=== PATIENT | male | born 1950 | race Caucasian/White ===

== ENCOUNTER 2018-03-18 09:05 | Outpatient (CLI) | payer MEDICARE, OTHER | END 2018-03-18 09:06 | disposition home or self-care (01) | LOC: LAB.F 09:05 | PROVIDERS: ATTEND Internal Medicine | DX: I35.9 Nonrheumatic aortic valve disorder, unspecified (principal); Z79.01 Long term (current) use of anticoagulants | CPT/HCPCS: 85610 ==

== ENCOUNTER 2018-04-29 09:15 | Outpatient (CLI) | payer MEDICARE, OTHER | END 2018-04-29 09:16 | disposition home or self-care (01) | LOC: LAB.F 09:15 | PROVIDERS: ATTEND Internal Medicine | DX: I35.9 Nonrheumatic aortic valve disorder, unspecified (principal); Z79.01 Long term (current) use of anticoagulants | CPT/HCPCS: 85610 ==

== ENCOUNTER 2018-06-04 09:37 | Outpatient (CLI) | payer MEDICARE, OTHER | END 2018-06-04 09:38 | disposition home or self-care (01) | LOC: LAB.F 09:37 | PROVIDERS: ATTEND Internal Medicine | DX: I35.9 Nonrheumatic aortic valve disorder, unspecified (principal) | CPT/HCPCS: 85610 ==

== ENCOUNTER 2018-06-25 09:01 | Outpatient (CLI) | payer MEDICARE, OTHER | END 2018-06-25 09:02 | disposition home or self-care (01) | LOC: LAB.F 09:01 | PROVIDERS: ATTEND Internal Medicine | DX: I35.9 Nonrheumatic aortic valve disorder, unspecified (principal) | CPT/HCPCS: 85610 ==

== ENCOUNTER 2018-07-05 10:23 | Outpatient (CLI) | payer MEDICARE, OTHER | END 2018-07-05 10:24 | disposition home or self-care (01) | LOC: DI 10:23 | PROVIDERS: ATTEND Internal Medicine Cardiovascular Disease | DX: I48.3 Typical atrial flutter (principal); I35.9 Nonrheumatic aortic valve disorder, unspecified | CPT/HCPCS: 93306 ==

== ENCOUNTER 2018-07-16 10:50 | Outpatient (CLI) | payer MEDICARE, OTHER | END 2018-07-16 10:51 | disposition home or self-care (01) | LOC: LAB.F 10:50 | PROVIDERS: ATTEND Internal Medicine | DX: I35.9 Nonrheumatic aortic valve disorder, unspecified (principal) | CPT/HCPCS: 85610 ==

== ENCOUNTER 2018-08-12 08:33 | Outpatient (CLI) | payer MEDICARE, OTHER | END 2018-08-12 08:34 | disposition home or self-care (01) | LOC: LAB.F 08:33 | PROVIDERS: ATTEND Internal Medicine | DX: I35.9 Nonrheumatic aortic valve disorder, unspecified (principal) | CPT/HCPCS: 85610 ==

== ENCOUNTER 2018-09-23 08:35 | Outpatient (CLI) | payer MEDICARE, OTHER | END 2018-09-23 08:36 | disposition home or self-care (01) | LOC: LAB.F 08:35 | PROVIDERS: ATTEND Internal Medicine | DX: I35.9 Nonrheumatic aortic valve disorder, unspecified (principal) | CPT/HCPCS: 85610 ==

== ENCOUNTER 2018-11-04 08:12 | Outpatient (CLI) | payer MEDICARE, OTHER | END 2018-11-04 08:13 | disposition home or self-care (01) | LOC: LAB.F 08:12 | PROVIDERS: ATTEND Internal Medicine | DX: I35.9 Nonrheumatic aortic valve disorder, unspecified (principal) | CPT/HCPCS: 85610 ==

== ENCOUNTER 2018-12-16 08:34 | Outpatient (CLI) | payer MEDICARE, OTHER | END 2018-12-16 08:35 | disposition home or self-care (01) | LOC: LAB.F 08:34 | PROVIDERS: ATTEND Internal Medicine | DX: I35.9 Nonrheumatic aortic valve disorder, unspecified (principal) | CPT/HCPCS: 85610 ==

== ENCOUNTER 2019-01-27 08:23 | Outpatient (CLI) | payer MEDICARE, OTHER | END 2019-01-27 08:24 | disposition home or self-care (01) | LOC: LAB.F 08:23 | PROVIDERS: ATTEND Internal Medicine | DX: I35.9 Nonrheumatic aortic valve disorder, unspecified (principal) | CPT/HCPCS: 85610 ==

== ENCOUNTER 2019-03-10 08:00 | Outpatient (CLI) | payer MEDICARE, OTHER | END 2019-03-10 08:01 | disposition home or self-care (01) | LOC: LAB.F 08:00 | PROVIDERS: ATTEND Internal Medicine | DX: I35.9 Nonrheumatic aortic valve disorder, unspecified (principal) | CPT/HCPCS: 85610 ==

== ENCOUNTER 2019-04-21 07:44 | Outpatient (CLI) | payer MEDICARE, OTHER | END 2019-04-21 07:45 | disposition home or self-care (01) | LOC: LAB.F 07:44 | PROVIDERS: ATTEND Internal Medicine | DX: I35.9 Nonrheumatic aortic valve disorder, unspecified (principal) | CPT/HCPCS: 85610 ==

== ENCOUNTER 2019-06-02 08:27 | Outpatient (CLI) | payer MEDICARE, OTHER | END 2019-06-02 08:28 | disposition home or self-care (01) | LOC: LAB.S 08:27 | PROVIDERS: ATTEND Internal Medicine | DX: I35.9 Nonrheumatic aortic valve disorder, unspecified (principal) | CPT/HCPCS: 85610 ==

== ENCOUNTER 2019-07-14 08:50 | Outpatient (CLI) | payer MEDICARE, OTHER | END 2019-07-14 08:51 | disposition home or self-care (01) | LOC: LAB.S 08:50 | PROVIDERS: ATTEND Internal Medicine | DX: I35.9 Nonrheumatic aortic valve disorder, unspecified (principal) | CPT/HCPCS: 85610 ==

== ENCOUNTER 2019-08-25 07:53 | Outpatient (CLI) | payer MEDICARE, OTHER | END 2019-08-25 07:54 | disposition home or self-care (01) | LOC: LAB.S 07:53 | PROVIDERS: ATTEND Internal Medicine | DX: I35.9 Nonrheumatic aortic valve disorder, unspecified (principal) | CPT/HCPCS: 85610 ==

== ENCOUNTER 2019-10-06 08:34 | Outpatient (CLI) | payer MEDICARE, OTHER | END 2019-10-06 08:35 | disposition home or self-care (01) | LOC: LAB.S 08:34 | PROVIDERS: ATTEND Internal Medicine | DX: I35.9 Nonrheumatic aortic valve disorder, unspecified (principal) | CPT/HCPCS: 85610 ==

== ENCOUNTER 2019-11-16 08:44 | Outpatient (CLI) | payer MEDICARE, OTHER | END 2019-11-16 08:45 | disposition home or self-care (01) | LOC: LAB.S 08:44 | PROVIDERS: ATTEND Internal Medicine | DX: I35.9 Nonrheumatic aortic valve disorder, unspecified (principal) | CPT/HCPCS: 85610 ==

== ENCOUNTER 2019-12-29 08:38 | Outpatient (CLI) | payer MEDICARE, OTHER | END 2019-12-29 08:39 | disposition home or self-care (01) | LOC: LAB.S 08:38 | PROVIDERS: ATTEND Internal Medicine | DX: I35.9 Nonrheumatic aortic valve disorder, unspecified (principal) | CPT/HCPCS: 85610 ==

== ENCOUNTER 2019-12-31 08:08 | Outpatient (CLI) | payer MEDICARE, OTHER | END 2019-12-31 08:09 | disposition home or self-care (01) | LOC: LAB.S 08:08 | PROVIDERS: ATTEND Internal Medicine | DX: I35.9 Nonrheumatic aortic valve disorder, unspecified (principal) | CPT/HCPCS: 85610 ==

== ENCOUNTER 2020-01-12 08:37 | Outpatient (CLI) | payer MEDICARE, OTHER | END 2020-01-12 08:38 | disposition home or self-care (01) | LOC: LAB.S 08:37 | PROVIDERS: ATTEND Internal Medicine | DX: I35.9 Nonrheumatic aortic valve disorder, unspecified (principal) | CPT/HCPCS: 85610 ==

== ENCOUNTER 2020-01-26 09:36 | Outpatient (CLI) | payer MEDICARE, OTHER | END 2020-01-26 09:37 | disposition home or self-care (01) | LOC: LAB.S 09:36 | PROVIDERS: ATTEND Internal Medicine | DX: I35.9 Nonrheumatic aortic valve disorder, unspecified (principal) | CPT/HCPCS: 85610 ==

== ENCOUNTER 2020-02-09 09:11 | Outpatient (CLI) | payer MEDICARE, OTHER | END 2020-02-09 09:12 | disposition home or self-care (01) | LOC: LAB.S 09:11 | PROVIDERS: ATTEND Internal Medicine | DX: I35.9 Nonrheumatic aortic valve disorder, unspecified (principal) | CPT/HCPCS: 85610 ==

== ENCOUNTER 2020-07-27 09:10 | Outpatient (CLI) | payer MEDICARE, OTHER | END 2020-07-27 09:11 | disposition home or self-care (01) | LOC: LAB.S 09:10 | PROVIDERS: ATTEND Internal Medicine | DX: I35.9 Nonrheumatic aortic valve disorder, unspecified (principal) | CPT/HCPCS: 85610 ==

== ENCOUNTER 2020-09-07 09:22 | Outpatient (CLI) | payer MEDICARE, OTHER | END 2020-09-07 09:23 | disposition home or self-care (01) | LOC: LAB.S 09:22 | PROVIDERS: ATTEND Internal Medicine | DX: I35.9 Nonrheumatic aortic valve disorder, unspecified (principal) | CPT/HCPCS: 85610 ==

== ENCOUNTER 2020-10-19 09:04 | Outpatient (CLI) | payer MEDICARE, OTHER | END 2020-10-19 09:05 | disposition home or self-care (01) | LOC: LAB.S 09:04 | PROVIDERS: ATTEND Internal Medicine | DX: I35.9 Nonrheumatic aortic valve disorder, unspecified (principal) | CPT/HCPCS: 85610 ==

== ENCOUNTER 2020-12-07 09:15 | Outpatient (CLI) | payer MEDICARE, OTHER | END 2020-12-07 09:16 | disposition home or self-care (01) | LOC: LAB.S 09:15 | PROVIDERS: ATTEND Internal Medicine | DX: I35.9 Nonrheumatic aortic valve disorder, unspecified (principal) | CPT/HCPCS: 85610 ==

== ENCOUNTER 2021-01-18 09:13 | Outpatient (CLI) | payer MEDICARE, OTHER | END 2021-01-18 09:14 | disposition home or self-care (01) | LOC: LAB.S 09:13 | PROVIDERS: ATTEND Internal Medicine | DX: I35.9 Nonrheumatic aortic valve disorder, unspecified (principal); Z51.81 Encounter for therapeutic drug level monitoring; Z79.01 Long term (current) use of anticoagulants | CPT/HCPCS: 85610 ==

== ENCOUNTER 2021-04-06 10:46 | Outpatient (CLI) | payer MEDICARE, OTHER | END 2021-04-06 10:47 | disposition home or self-care (01) | LOC: LAB.S 10:46 | PROVIDERS: ATTEND Internal Medicine | DX: Z51.81 Encounter for therapeutic drug level monitoring (principal); Z79.01 Long term (current) use of anticoagulants; I35.9 Nonrheumatic aortic valve disorder, unspecified | CPT/HCPCS: 36416; 85610 ==

== ENCOUNTER 2021-05-18 09:45 | Outpatient (CLI) | payer MEDICARE, OTHER | END 2021-05-18 09:46 | disposition home or self-care (01) | LOC: LAB.S 09:45 | PROVIDERS: ATTEND Internal Medicine | DX: Z51.81 Encounter for therapeutic drug level monitoring (principal); Z79.01 Long term (current) use of anticoagulants; I35.9 Nonrheumatic aortic valve disorder, unspecified | CPT/HCPCS: 36416; 85610 ==

== ENCOUNTER 2021-06-13 09:04 | Outpatient (CLI) | payer MEDICARE, OTHER | END 2021-06-13 09:05 | disposition home or self-care (01) | LOC: LAB.S 09:04 | PROVIDERS: ATTEND Internal Medicine | DX: Z51.81 Encounter for therapeutic drug level monitoring (principal); Z79.01 Long term (current) use of anticoagulants; I35.9 Nonrheumatic aortic valve disorder, unspecified | CPT/HCPCS: 36416; 85610 ==

== ENCOUNTER 2021-06-20 09:08 | Outpatient (CLI) | payer MEDICARE, OTHER | END 2021-06-20 09:09 | disposition home or self-care (01) | LOC: LAB.S 09:08 | PROVIDERS: ATTEND Internal Medicine | DX: Z51.81 Encounter for therapeutic drug level monitoring (principal); Z79.01 Long term (current) use of anticoagulants; I35.9 Nonrheumatic aortic valve disorder, unspecified | CPT/HCPCS: 36416; 85610 ==

== ENCOUNTER 2021-07-04 09:02 | Outpatient (CLI) | payer MEDICARE, OTHER | END 2021-07-04 09:03 | disposition home or self-care (01) | LOC: LAB.S 09:02 | PROVIDERS: ATTEND Internal Medicine | DX: Z51.81 Encounter for therapeutic drug level monitoring (principal); Z79.01 Long term (current) use of anticoagulants; I35.9 Nonrheumatic aortic valve disorder, unspecified | CPT/HCPCS: 36416; 85610 ==

== ENCOUNTER 2021-08-01 09:14 | Outpatient (CLI) | payer MEDICARE, OTHER | END 2021-08-01 09:15 | disposition home or self-care (01) | LOC: LAB.S 09:14 | PROVIDERS: ATTEND Internal Medicine | DX: Z51.81 Encounter for therapeutic drug level monitoring (principal); Z79.01 Long term (current) use of anticoagulants; I35.9 Nonrheumatic aortic valve disorder, unspecified | CPT/HCPCS: 36416; 85610 ==

== ENCOUNTER 2021-08-29 09:58 | Outpatient (CLI) | payer MEDICARE, OTHER | END 2021-08-29 09:59 | disposition home or self-care (01) | LOC: LAB.S 09:58 | PROVIDERS: ATTEND Internal Medicine | DX: I35.9 Nonrheumatic aortic valve disorder, unspecified (principal); Z51.81 Encounter for therapeutic drug level monitoring; Z79.01 Long term (current) use of anticoagulants | CPT/HCPCS: 36416; 85610 ==

== ENCOUNTER 2021-09-26 08:26 | Outpatient (CLI) | payer MEDICARE, OTHER | END 2021-09-26 08:27 | disposition home or self-care (01) | LOC: LAB.S 08:26 | PROVIDERS: ATTEND Internal Medicine | DX: Z51.81 Encounter for therapeutic drug level monitoring (principal); Z79.01 Long term (current) use of anticoagulants; I35.9 Nonrheumatic aortic valve disorder, unspecified | CPT/HCPCS: 36416; 85610 ==

== ENCOUNTER 2021-11-07 08:58 | Outpatient (CLI) | payer MEDICARE, OTHER | END 2021-11-07 08:59 | disposition home or self-care (01) | LOC: LAB.S 08:58 | PROVIDERS: ATTEND Internal Medicine | DX: Z51.81 Encounter for therapeutic drug level monitoring (principal); Z79.01 Long term (current) use of anticoagulants; I35.9 Nonrheumatic aortic valve disorder, unspecified | CPT/HCPCS: 36416; 85610 ==

== ENCOUNTER 2021-12-19 09:00 | Outpatient (CLI) | payer MEDICARE, OTHER | END 2021-12-19 09:01 | disposition home or self-care (01) | LOC: LAB.S 09:00 | PROVIDERS: ATTEND Internal Medicine | DX: Z51.81 Encounter for therapeutic drug level monitoring (principal); Z79.01 Long term (current) use of anticoagulants; I35.9 Nonrheumatic aortic valve disorder, unspecified | CPT/HCPCS: 36416; 85610 ==

== ENCOUNTER 2022-01-30 09:17 | Outpatient (CLI) | payer MEDICARE, OTHER | END 2022-01-30 09:18 | disposition home or self-care (01) | LOC: LAB.S 09:17 | PROVIDERS: ATTEND Internal Medicine | DX: Z51.81 Encounter for therapeutic drug level monitoring (principal); Z79.01 Long term (current) use of anticoagulants; I35.9 Nonrheumatic aortic valve disorder, unspecified | CPT/HCPCS: 36416; 85610 ==

== ENCOUNTER 2022-03-14 09:24 | Outpatient (CLI) | payer MEDICARE, OTHER | END 2022-03-14 09:25 | disposition home or self-care (01) | LOC: LAB.S 09:24 | PROVIDERS: ATTEND Internal Medicine | DX: Z51.81 Encounter for therapeutic drug level monitoring (principal); I35.9 Nonrheumatic aortic valve disorder, unspecified; Z79.01 Long term (current) use of anticoagulants | CPT/HCPCS: 36416; 85610 ==

== ENCOUNTER 2022-04-30 07:55 | Outpatient (CLI) | payer MEDICARE, OTHER | END 2022-04-30 07:56 | disposition home or self-care (01) | LOC: LAB.S 07:55 | PROVIDERS: ATTEND Internal Medicine | DX: Z51.81 Encounter for therapeutic drug level monitoring (principal); Z79.01 Long term (current) use of anticoagulants; I35.9 Nonrheumatic aortic valve disorder, unspecified | CPT/HCPCS: 36416; 85610 ==

== ENCOUNTER 2022-06-06 09:21 | Outpatient (CLI) | payer MEDICARE, OTHER | END 2022-06-06 09:22 | disposition home or self-care (01) | LOC: LAB.S 09:21 | PROVIDERS: ATTEND Internal Medicine | DX: Z51.81 Encounter for therapeutic drug level monitoring (principal); Z79.01 Long term (current) use of anticoagulants; I35.9 Nonrheumatic aortic valve disorder, unspecified | CPT/HCPCS: 36416; 85610 ==

== ENCOUNTER 2022-07-18 09:18 | Outpatient (CLI) | payer MEDICARE, OTHER | END 2022-07-18 09:19 | disposition home or self-care (01) | LOC: LAB.S 09:18 | PROVIDERS: ATTEND Internal Medicine | DX: I35.9 Nonrheumatic aortic valve disorder, unspecified (principal); Z51.81 Encounter for therapeutic drug level monitoring; Z79.01 Long term (current) use of anticoagulants | CPT/HCPCS: 36416; 85610 ==

== ENCOUNTER 2022-08-08 09:50 | Outpatient (CLI) | payer MEDICARE, OTHER | END 2022-08-08 09:51 | disposition home or self-care (01) | LOC: LAB.S 09:50 | PROVIDERS: ATTEND Internal Medicine | DX: Z51.81 Encounter for therapeutic drug level monitoring (principal); I35.9 Nonrheumatic aortic valve disorder, unspecified; Z79.01 Long term (current) use of anticoagulants | CPT/HCPCS: 36416; 85610 ==

== ENCOUNTER 2022-09-05 08:33 | Outpatient (CLI) | payer MEDICARE, OTHER | END 2022-09-05 08:34 | disposition home or self-care (01) | LOC: LAB.S 08:33 | PROVIDERS: ATTEND Internal Medicine | DX: Z51.81 Encounter for therapeutic drug level monitoring (principal); Z79.01 Long term (current) use of anticoagulants; I35.9 Nonrheumatic aortic valve disorder, unspecified | CPT/HCPCS: 36416; 85610 ==

== ENCOUNTER 2022-09-26 08:43 | Outpatient (CLI) | payer MEDICARE, OTHER | END 2022-09-26 08:44 | disposition home or self-care (01) | LOC: LAB.S 08:43 | PROVIDERS: ATTEND Internal Medicine | DX: Z51.81 Encounter for therapeutic drug level monitoring (principal); Z79.01 Long term (current) use of anticoagulants; I35.9 Nonrheumatic aortic valve disorder, unspecified | CPT/HCPCS: 36416; 85610 ==

== ENCOUNTER 2022-10-24 08:52 | Outpatient (CLI) | payer MEDICARE, OTHER | END 2022-10-24 08:53 | disposition home or self-care (01) | LOC: LAB.S 08:52 | PROVIDERS: ATTEND Internal Medicine | DX: Z51.81 Encounter for therapeutic drug level monitoring (principal); Z79.01 Long term (current) use of anticoagulants; I35.9 Nonrheumatic aortic valve disorder, unspecified | CPT/HCPCS: 36416; 85610 ==

== ENCOUNTER 2022-12-05 09:34 | Outpatient (CLI) | payer MEDICARE, BC | END 2022-12-05 09:35 | disposition home or self-care (01) | LOC: LAB.S 09:34 | PROVIDERS: ATTEND Internal Medicine | DX: Z51.81 Encounter for therapeutic drug level monitoring (principal); Z79.01 Long term (current) use of anticoagulants; I35.9 Nonrheumatic aortic valve disorder, unspecified | CPT/HCPCS: 36416; 85610 ==

== ENCOUNTER 2022-12-26 08:47 | Outpatient (CLI) | payer MEDICARE, BC | END 2022-12-26 08:48 | disposition home or self-care (01) | LOC: LAB.S 08:47 | PROVIDERS: ATTEND Internal Medicine | DX: Z51.81 Encounter for therapeutic drug level monitoring (principal); I35.9 Nonrheumatic aortic valve disorder, unspecified; Z79.01 Long term (current) use of anticoagulants | CPT/HCPCS: 36416; 85610 ==

== ENCOUNTER 2023-02-06 09:38 | Outpatient (CLI) | payer MEDICARE, BC | END 2023-02-06 09:39 | disposition home or self-care (01) | LOC: LAB.S 09:38 | PROVIDERS: ATTEND Internal Medicine | DX: Z51.81 Encounter for therapeutic drug level monitoring (principal); Z79.01 Long term (current) use of anticoagulants; I35.9 Nonrheumatic aortic valve disorder, unspecified | CPT/HCPCS: 36416; 85610 ==

== ENCOUNTER 2023-03-20 08:46 | Outpatient (CLI) | payer MEDICARE, OTHER | END 2023-03-20 08:47 | disposition home or self-care (01) | LOC: LAB.S 08:46 | PROVIDERS: ATTEND Internal Medicine | DX: Z51.81 Encounter for therapeutic drug level monitoring (principal); Z79.01 Long term (current) use of anticoagulants; I35.9 Nonrheumatic aortic valve disorder, unspecified | CPT/HCPCS: 36416; 85610 ==

== ENCOUNTER 2023-05-01 08:19 | Outpatient (CLI) | payer MEDICARE, OTHER | END 2023-05-01 08:20 | disposition home or self-care (01) | LOC: LAB.S 08:19 | PROVIDERS: ATTEND Internal Medicine | DX: Z51.81 Encounter for therapeutic drug level monitoring (principal); Z79.01 Long term (current) use of anticoagulants; I35.9 Nonrheumatic aortic valve disorder, unspecified | CPT/HCPCS: 36416; 85610 ==

== ENCOUNTER 2023-06-12 08:30 | Outpatient (CLI) | payer MEDICARE, OTHER | END 2023-06-12 08:31 | disposition home or self-care (01) | LOC: LAB.S 08:30 | PROVIDERS: ATTEND Internal Medicine | DX: Z51.81 Encounter for therapeutic drug level monitoring (principal); Z79.01 Long term (current) use of anticoagulants; I35.9 Nonrheumatic aortic valve disorder, unspecified | CPT/HCPCS: 36416; 85610 ==

== ENCOUNTER 2023-07-10 08:11 | Outpatient (CLI) | payer MEDICARE, OTHER | END 2023-07-10 08:12 | disposition home or self-care (01) | LOC: LAB.S 08:11 | PROVIDERS: ATTEND Internal Medicine | DX: Z51.81 Encounter for therapeutic drug level monitoring (principal); Z79.01 Long term (current) use of anticoagulants; I35.9 Nonrheumatic aortic valve disorder, unspecified | CPT/HCPCS: 36416; 85610 ==

== ENCOUNTER 2023-10-02 09:07 | Outpatient (CLI) | payer MEDICARE, OTHER | END 2023-10-02 09:08 | disposition home or self-care (01) | LOC: DI 09:07 | PROVIDERS: ATTEND Internal Medicine Cardiovascular Disease | DX: Z95.2 Presence of prosthetic heart valve (principal); I77.819 Aortic ectasia, unspecified site; R00.1 Bradycardia, unspecified | CPT/HCPCS: 93306 ==

== ENCOUNTER 2023-10-31 08:41 | Outpatient (CLI) | payer MEDICARE, OTHER | END 2023-10-31 08:42 | disposition home or self-care (01) | LOC: LAB.S 08:41 | PROVIDERS: ATTEND Internal Medicine | DX: Z51.81 Encounter for therapeutic drug level monitoring (principal); Z79.01 Long term (current) use of anticoagulants; I35.9 Nonrheumatic aortic valve disorder, unspecified | CPT/HCPCS: 36416; 85610 ==

== ENCOUNTER 2023-11-14 09:14 | Outpatient (CLI) | payer MEDICARE, OTHER | END 2023-11-14 09:15 | disposition home or self-care (01) | LOC: LAB.S 09:14 | PROVIDERS: ATTEND Internal Medicine | DX: Z51.81 Encounter for therapeutic drug level monitoring (principal); Z79.01 Long term (current) use of anticoagulants; I35.9 Nonrheumatic aortic valve disorder, unspecified | CPT/HCPCS: 36416; 85610 ==

== ENCOUNTER 2023-12-11 08:47 | Outpatient (CLI) | payer MEDICARE, OTHER | END 2023-12-11 08:48 | disposition home or self-care (01) | LOC: LAB.S 08:47 | PROVIDERS: ATTEND Internal Medicine | DX: Z51.81 Encounter for therapeutic drug level monitoring (principal); Z79.01 Long term (current) use of anticoagulants; I35.9 Nonrheumatic aortic valve disorder, unspecified | CPT/HCPCS: 36416; 85610 ==

== ENCOUNTER 2024-01-02 08:32 | Outpatient (CLI) | payer MEDICARE, OTHER | END 2024-01-02 08:33 | disposition home or self-care (01) | LOC: LAB.S 08:32 | PROVIDERS: ATTEND Internal Medicine | DX: Z51.81 Encounter for therapeutic drug level monitoring (principal); Z79.01 Long term (current) use of anticoagulants; I35.9 Nonrheumatic aortic valve disorder, unspecified | CPT/HCPCS: 36416; 85610 ==

== ENCOUNTER 2024-01-22 08:21 | Outpatient (CLI) | payer MEDICARE, OTHER | END 2024-01-22 08:22 | disposition home or self-care (01) | LOC: LAB.S 08:21 | PROVIDERS: ATTEND Internal Medicine | DX: Z51.81 Encounter for therapeutic drug level monitoring (principal); Z79.01 Long term (current) use of anticoagulants; I35.9 Nonrheumatic aortic valve disorder, unspecified | CPT/HCPCS: 36416; 85610 ==

== ENCOUNTER 2024-02-27 08:33 | Outpatient (CLI) | payer MEDICARE, OTHER | END 2024-02-27 08:34 | disposition home or self-care (01) | LOC: LAB.S 08:33 | PROVIDERS: ATTEND Internal Medicine | DX: Z51.81 Encounter for therapeutic drug level monitoring (principal); Z79.01 Long term (current) use of anticoagulants; I35.9 Nonrheumatic aortic valve disorder, unspecified | CPT/HCPCS: 36416; 85610 ==

== ENCOUNTER 2024-03-30 08:25 | Outpatient (CLI) | payer MEDICARE, OTHER | END 2024-03-30 08:26 | disposition home or self-care (01) | LOC: LAB.S 08:25 | PROVIDERS: ATTEND Internal Medicine | DX: Z51.81 Encounter for therapeutic drug level monitoring (principal); Z79.01 Long term (current) use of anticoagulants; I35.9 Nonrheumatic aortic valve disorder, unspecified | CPT/HCPCS: 36416; 85610 ==

== ENCOUNTER 2024-04-20 09:34 | Outpatient (CLI) | payer MEDICARE, OTHER | END 2024-04-20 09:35 | disposition home or self-care (01) | LOC: LAB.S 09:34 | PROVIDERS: ATTEND Internal Medicine | DX: Z51.81 Encounter for therapeutic drug level monitoring (principal); Z79.01 Long term (current) use of anticoagulants; I35.9 Nonrheumatic aortic valve disorder, unspecified | CPT/HCPCS: 36416; 85610 ==

== ENCOUNTER 2024-05-11 08:04 | Outpatient (CLI) | payer MEDICARE, OTHER | END 2024-05-11 08:05 | disposition home or self-care (01) | LOC: LAB.S 08:04 | PROVIDERS: ATTEND Internal Medicine | DX: Z51.81 Encounter for therapeutic drug level monitoring (principal); Z79.01 Long term (current) use of anticoagulants; I35.9 Nonrheumatic aortic valve disorder, unspecified | CPT/HCPCS: 36416; 85610 ==

== ENCOUNTER 2024-06-17 08:40 | Outpatient (CLI) | payer MEDICARE, OTHER | END 2024-06-17 08:41 | disposition home or self-care (01) | LOC: LAB.S 08:40 | PROVIDERS: ATTEND Internal Medicine | DX: Z51.81 Encounter for therapeutic drug level monitoring (principal); Z79.01 Long term (current) use of anticoagulants; I35.9 Nonrheumatic aortic valve disorder, unspecified | CPT/HCPCS: 36416; 85610 ==

== ENCOUNTER 2024-07-08 08:52 | Outpatient (CLI) | payer MEDICARE, OTHER | END 2024-07-08 08:53 | disposition home or self-care (01) | LOC: LAB.S 08:52 | PROVIDERS: ATTEND Internal Medicine | DX: Z51.81 Encounter for therapeutic drug level monitoring (principal); Z79.01 Long term (current) use of anticoagulants; I35.9 Nonrheumatic aortic valve disorder, unspecified | CPT/HCPCS: 36416; 85610 ==

== ENCOUNTER 2024-07-22 07:10 | Outpatient (CLI) | payer MEDICARE, OTHER | END 2024-07-22 07:11 | disposition home or self-care (01) | LOC: LAB.S 07:10 | PROVIDERS: ATTEND Internal Medicine | DX: Z51.81 Encounter for therapeutic drug level monitoring (principal); Z79.01 Long term (current) use of anticoagulants; I35.9 Nonrheumatic aortic valve disorder, unspecified | CPT/HCPCS: 36416; 85610 ==